=== PATIENT | male | born 1945 | race Caucasian/White ===

== ENCOUNTER → 2017-08-18 | Outpatient (CLI) | payer MEDICARE, BC ==
--- NOTE | 2017-08-18 12:26 | RAD ---
Indication difficulty swallowing. In anticipation of an esophagram a preliminary film of the chest was obtained. No acute finding is seen. There are probable background emphysematous changes. Postoperative changes are noted. Heart and pulmonary vessels are within normal limits. The initiation of swallowing was normal. No esophageal strictures, erosions or mucosal abnormalities were identified. There was relatively poor peristalsis of the esophagus. No esophageal mass was seen mild generalized dilatation of the esophagus was seen. There is a small hiatus hernia. 9 fluoroscopic images were obtained. Fluoroscopy time associated with the examination was 1.4 minutes IMPRESSION: Somewhat poor peristalsis. Generalized dilatation of the esophagus. Small hiatus hernia. No strictured segment seen
== END | disposition home or self-care (01) ==
LOC: RAD 11:23
PROVIDERS: ATTEND Family Medicine
DX: K22.8 Other specified diseases of esophagus (principal); K44.9 Diaphragmatic hernia without obstruction or gangrene; R13.11 Dysphagia, oral phase
CPT/HCPCS: 74220

== ENCOUNTER → 2017-09-01 | Outpatient (CLI) | payer MEDICARE, BC ==
--- NOTE | 2017-09-01 12:12 | RAD ---
INDICATION: EVALUATE FOR BARIUM FROM PREVIOUS EXAMS, planning for CT COMPARISON: April 07, 2012 IMPRESSION: Single frontal view of abdomen obtained. There is a moderate amount of stool throughout the colon. There is some barium seen within the colon.
== END | disposition home or self-care (01) ==
LOC: DXRAD 11:38
DX: I71.4 Abdominal aortic aneurysm, without rupture (principal)
CPT/HCPCS: 74000

== ENCOUNTER 2019-10-07 13:18 | Inpatient (IN) | payer MEDICARE, BC ==
[2019-10-07] VITALS (11 sets, daily range): BP systolic 134–165; BP diastolic 49–83
[~2019-10-07] VITALS: Ht 182.9 cm; Wt 60.0 kg
[2019-10-07 14:39] LABS: BASO # 0.1 x10^3/uL (0.0-0.2); BASO % 0 % (0-3); EOS # 0.1 x10^3/uL (0.0-0.7); EOS % 1 % (0-3); LYMPH % 6 % (24-48); MEAN CORPUSCULAR HEMOGLOBIN 33 pg (25-35); MEAN CORPUSCULAR HGB CONC 32 g/dL (31-37); MEAN CORPUSCULAR VOLUME 105 fL (79-100); MONO # 1.5 x10^3/uL (0.0-1.1); MONO % 9 % (0-9); NEUT # 15.4 x10^3uL (1.8-7.7); NEUT % 85 % (31-73); PLATELET COUNT 236 x10^3/uL (140-400); RED BLOOD COUNT 1.46 x10^6/uL (4.30-5.70); RED CELL DISTRIBUTION WIDTH 14.7 % (11.5-14.5); WHITE BLOOD COUNT 18.1 x10^3/uL (4.0-11.0)
[2019-10-07 14:43] LABS: HEMATOCRIT 15.4 % (39.0-53.0); HEMOGLOBIN 4.9 g/dL (13.0-17.5)
[2019-10-07] MEDS ORDERED: IV 1/2 NORMAL SALINE 1,000 ML IV SCH (14:45)
[2019-10-07 14:48] LABS: ALBUMIN/GLOBULIN RATIO 1.1 (1.0-1.7); CALCIUM 8.1 mg/dL (8.5-10.1); CREATININE 1.6 mg/dL (0.7-1.3); GFR 42.6; POTASSIUM 3.1 mmol/L (3.5-5.1); TOTAL BILIRUBIN 0.4 mg/dL (0.2-1.0); TOTAL PROTEIN 5.8 g/dL (6.4-8.2)
--- NOTE | 2019-10-07 15:01 | NUR ---
Pt arrived via wheelchair from Dr. Carrillo's office for weakness and anemia. Vital Signs stable upon arrival. Family at bedside, non-skid socks applied. Peripheral IV inserted in L forearm. Bed in lowest position, call light within reach. Will continue to assess and treat per 's orders.
--- NOTE | 2019-10-07 15:04 | NUR ---
Pt had critical lab HCT-15.4, HGB-4.9, orders received. Will adher to 's orders as prescribed.
[2019-10-07] MEDS ORDERED: HYDR25TA10 PO (15:11)
[2019-10-07] MEDS ORDERED: OMEP40CA45 PO (15:11)
[2019-10-07] MEDS ORDERED: LOSA100T14 PO (15:12)
[2019-10-07] MEDS ORDERED: CYAN1TAB PO (15:12)
[2019-10-07] MEDS ORDERED: EZET10TA49 PO (15:12)
[2019-10-07] MEDS ORDERED: ATOR80TA72 PO (15:12)
[2019-10-07] MEDS ORDERED: ALPR0.254 PO (15:12)
[2019-10-07] MEDS ORDERED: POTASSIUM CHLORIDE 20 MEQ TABLET.ER. PO ONE (15:30)
[2019-10-07] MEDS ORDERED: ASCO500C PO (15:31)
[2019-10-07] MEDS ORDERED: ASPI81TA50 PO (15:31)
[2019-10-07] MEDS ORDERED: CHOL100013 PO (15:31)
[2019-10-07] MEDS ORDERED: FERR325T14 PO (15:31)
[2019-10-07] MEDS ORDERED: CALC500T54 PO (15:31)
[2019-10-07] MEDS ORDERED: MULT-505 PO (15:32)
[2019-10-07] MEDS ORDERED: OMEG1CAP38 PO (15:32)
[2019-10-07] MEDS ORDERED: ELECTROLYTE (NON-ICU) PROTOCOL MC PRN (16:00)
[2019-10-07 16:13] LABS: % BANDS 4 % (0-9); % LYMPHS 5 % (24-48); % MONOS 4 % (0-10); % SEGS 87 % (35-66); PLATELET CLUMP PRESENT
--- NOTE | 2019-10-07 16:13 | RAD ---
Exam: CT of chest, abdomen and pelvis without contrast INDICATION: GI bleed TECHNIQUE: Sequential axial images through the chest, abdomen and pelvis obtained without IV contrast. Sagittal and coronal reformatted images were reconstructed from the axial data and reviewed. Comparisons: None FINDINGS: Visualized portions of the thyroid are unremarkable. No enlarged mediastinal lymph nodes are identified. Heart size is normal. No pericardial effusion. Mild to moderate coronary artery calcifications are noted. Thoracic aorta has a normal course and caliber. Pulmonary artery is not enlarged. Airways are patent. No consolidation or pneumothorax. Evaluation lungs is mildly limited secondary to respiratory motion particularly at the lung bases. No suspicious lung nodules are identified. No pleural effusion or thickening. Evaluation of the solid abdominal organs limited secondary to noncontrast technique. Liver, spleen, pancreas, gallbladder and adrenals are unremarkable. No perinephric inflammation or hydronephrosis. Several punctate calcifications within the renal mora bilaterally which may represent either nonobstructing renal calculi or vascular calcifications. There are several hypoattenuating cystic lesions within the kidneys bilaterally which are incompletely characterized on this exam, statistically likely to represent renal cysts. No ureteral calculi are identified. Bladder is distended and appears thin-walled. Prostate is not enlarged. Large amount of stool is noted within the ascending and transverse colon. No obstruction. No free intra-abdominal air or fluid. Aortic aneurysm with aortobiiliac stent graft is noted. Aneurysm measures approximately 5.1 cm as it largest diameter. No enlarged intra-abdominal lymph nodes are identified. No suspicious osseous lesions or acute fractures. IMPRESSION: 1. Aortic aneurysm measuring up to 5.1 cm in largest diameter with aortic biiliac stent graft. 2. Large amount stool noted within the colon without obstruction identified. 3. No acute processes identified within the chest. Exposure: One or more of the following in the visualized dose reduction techniques were utilized for this examination: 1. Automated exposure control 2. Adjustment of the MA and/or KV according to patient size 3. Use of iterative of reconstructive technique Electronically signed by: Thomas Dawson MD (10/07/2019 4:10 PM) [id number]
[2019-10-07] MEDS: PANTOPRAZOLE IV 80 MG in IV NORMAL SALINE 100ML 100 ML IV SCH (16:16)
[2019-10-07] MEDS: IV NORMAL SALINE 1,000ML 1,000 ML IV SCH ×3 (16:18→23:00)
--- NOTE | 2019-10-07 16:24 | RAD ---
EXAM: Chest, single view. HISTORY: Shortness of breath. COMPARISON: None. FINDINGS: Frontal views of chest are obtained. There is hyperinflation and hyperlucency due to inspiratory effort or emphysema. There is suspected right apical pleural parenchymal scarring. There is no consolidation, pleural effusion or pneumothorax. There are median sternotomy changes. There is distended air-filled bowel within the upper abdomen. IMPRESSION: 1. No acute pulmonary finding. 2. Distended air-filled bowel within the upper abdomen. Electronically signed by: Jenn Murphy MD (10/07/2019 4:21 PM) [id number]
[2019-10-07 16:27] LABS: PLT ESTIMATE ADEQUATE (ADEQUATE)
--- NOTE | 2019-10-07 17:10 | NUR ---
Blood Transfusion started at 1655. Tubing primed with NS and then primed with blood. Transfusion started at 60/hr, patient monitored closely x 15min. No reaction noted, transfusion increased to 120/hr.
--- NOTE | 2019-10-07 19:40 | NUR ---
1st unit completed at 1939. Pt tolerated well.
[2019-10-07 23:34] LABS: HEMATOCRIT 20.9 % (39.0-53.0)
[2019-10-07 23:50] LABS: HEMOGLOBIN 6.8 g/dL (13.0-17.5)
[2019-10-07 23:52] LABS: FECAL OB PT POSITIVE (NEG)
[2019-10-07 23:53] LABS: BACTERIA,URINE 0 /HPF (0-FEW); BILIRUBIN,URINE NEG (NEG); CLARITY,URINE CLEAR; COLOR,URINE YELLOW; GLUCOSE,URINE NEG (NEG); NITRITE,URINE NEG (NEG); RBC,URINE 0 /HPF (0-2); UROBILINOGEN,URINE 0.2 mg/dL (0.2 mg/dL); WBC,URINE OCC /HPF (0-4)
--- NOTE | 2019-10-07 23:58 | NUR ---
2nd unit of Blood Blood transfusion started at 4. Tubing primed with normal saline and then primed with blood. Transfusion started at 100 ml/hr, patient monitored closely x15 minutes. No transfusion reaction noted, transfusion increased to 150. Transfusion completed at 2249. Pt tolerated well.
[2019-10-08] VITALS (10 sets, daily range): BP systolic 138–185; BP diastolic 52–82
[2019-10-08] MEDS: PANTOPRAZOLE IV 80 MG in IV NORMAL SALINE 100ML 100 ML IV SCH ×2 (01:15→12:40)
[2019-10-08] MEDS: IV NORMAL SALINE 1,000ML 1,000 ML IV SCH ×5 (03:00→19:00)
--- NOTE | 2019-10-08 03:24 | NUR ---
3rd unit of Blood Blood transfusion started at 0039. Tubing primed with normal saline and then primed with blood. Transfusion started at 100 ml/hr, patient monitored closely x15 minutes. No transfusion reaction noted, transfusion increased to 150. Transfusion completed at 0300. Pt tolerated well.
[2019-10-08 06:24] LABS: BASO % 0 % (0-3); CALCIUM 7.4 mg/dL (8.5-10.1); CREATININE 1.2 mg/dL (0.7-1.3); EOS # 0.1 x10^3/uL (0.0-0.7); EOS % 1 % (0-3); GFR 59.3; HEMATOCRIT 22.2 % (39.0-53.0); HEMOGLOBIN 7.5 g/dL (13.0-17.5); LYMPH # 0.5 x10^3/uL (1.0-4.8); LYMPH % 5 % (24-48); MEAN CORPUSCULAR HEMOGLOBIN 32 pg (25-35); MEAN CORPUSCULAR HGB CONC 34 g/dL (31-37); MEAN CORPUSCULAR VOLUME 94 fL (79-100); MONO % 10 % (0-9); NEUT # 8.5 x10^3uL (1.8-7.7); NEUT % 84 % (31-73); PLATELET COUNT 135 x10^3/uL (140-400); POTASSIUM 3.4 mmol/L (3.5-5.1); RED BLOOD COUNT 2.37 x10^6/uL (4.30-5.70); RED CELL DISTRIBUTION WIDTH 18.1 % (11.5-14.5); WHITE BLOOD COUNT 10.2 x10^3/uL (4.0-11.0)
[2019-10-08] MEDS ORDERED: POTASSIUM CHLORIDE 20 MEQ TABLET.ER. PO ONE (07:30)
[2019-10-08] MEDS ORDERED: ALPRAZolam 0.25 MG TABLET PO PRN (08:45)
[2019-10-08] MEDS ORDERED: FERROUS SULFATE 325 MG TABLET. PO SCH (09:00)
[2019-10-08 12:35] LABS: HEMATOCRIT 25.3 % (39.0-53.0); HEMOGLOBIN 8.2 g/dL (13.0-17.5)
[2019-10-08 15:57] LABS: FECAL OB PT POSITIVE (NEG)
[2019-10-08 16:36] LABS: HEMATOCRIT 22.2 % (39.0-53.0); HEMOGLOBIN 7.4 g/dL (13.0-17.5)
--- NOTE | 2019-10-08 17:18 | NUR ---
Critical lab value noted on 10/07/19, Dr. pritchard at 1500. Assessed pt as ordered
[2019-10-08] MEDS ORDERED: hydrALAZINE 10 MG TABLET PO ONE (18:15)
--- NOTE | 2019-10-08 20:39 | NUR ---
EMS arrived at 1956, transported PT to at 2015. PT in stable condition. PT belongings with the PT. PT gave some money, a check and house keys to visitor. Vital signs noted.
== END 2019-10-08 20:08 | disposition short-term general hospital (02) | DRG 379 ==
LOC: 1 SOUTH 13:18
PROVIDERS: ADMIT Family Medicine; ATTEND Family Medicine
PROC: 30233N1 Transfusion of Nonautologous Red Blood Cells into Peripheral Vein, Percutaneous Approach (ICD-10-PCS; principal; 2019-10-07)
DX: K92.2 Gastrointestinal hemorrhage, unspecified (principal); Z91.041 Radiographic dye allergy status; Z82.49 Family history of ischemic heart disease and other diseases of the circulatory system; D64.9 Anemia, unspecified; K92.1 Melena
CPT/HCPCS: 36415; 71045; 71250; 74176; 80048; 80053; 81001; 82274; 82550; 83605; 84443; 84484; 85007; 85014; 85018; 85025; 85379; 85610; 85730; 86850; 86900; 86901; 86920; C9113; P9016; J7030

== ENCOUNTER → 2019-10-19 | Outpatient (CLI) | payer MEDICARE, BC ==
[2019-10-08 19:54] VITALS: BP 177/82
[~2019-10-19] MED LIST: ALPR0.254 PO; ASCO500C PO; ASPI81TA50 PO; ATOR80TA72 PO; CALC500T54 PO; CHOL100013 PO; CYAN1TAB PO; EZET10TA49 PO; FERR325T14 PO; HYDR25TA10 PO; LOSA100T14 PO; MULT-505 PO; OMEG1CAP38 PO; OMEP40CA45 PO
[2019-10-19 12:25] LABS: BASO % 0 % (0-3); EOS # 0.1 x10^3/uL (0.0-0.7); EOS % 1 % (0-3); HEMATOCRIT 35.3 % (39.0-53.0); HEMOGLOBIN 11.3 g/dL (13.0-17.5); LYMPH # 0.3 x10^3/uL (1.0-4.8); LYMPH % 3 % (24-48); MEAN CORPUSCULAR HEMOGLOBIN 32 pg (25-35); MEAN CORPUSCULAR HGB CONC 32 g/dL (31-37); MEAN CORPUSCULAR VOLUME 99 fL (79-100); MONO # 0.9 x10^3/uL (0.0-1.1); MONO % 9 % (0-9); NEUT # 8.5 x10^3uL (1.8-7.7); NEUT % 86 % (31-73); PLATELET COUNT 248 x10^3/uL (140-400); RED BLOOD COUNT 3.59 x10^6/uL (4.30-5.70); RED CELL DISTRIBUTION WIDTH 20.1 % (11.5-14.5); WHITE BLOOD COUNT 9.9 x10^3/uL (4.0-11.0)
[2019-10-19 12:31] LABS: CALCIUM 8.8 mg/dL (8.5-10.1); CREATININE 1.3 mg/dL (0.7-1.3); GFR 54.1; POTASSIUM 3.9 mmol/L (3.5-5.1)
[2019-10-19 14:04] LABS: PLT ESTIMATE ADEQUATE (ADEQUATE)
[2019-10-19 14:05] LABS: BURR CELLS FEW; OVALOCYTES OCC; SCHISTOCYTES FEW
[2019-10-19 14:06] LABS: ANISOCYTOSIS PRESENT; TEAR DROP CELLS FEW
== END | disposition home or self-care (01) ==
LOC: LAB 12:13
PROVIDERS: ATTEND Family Medicine
DX: K92.2 Gastrointestinal hemorrhage, unspecified (principal)
CPT/HCPCS: 36415; 80048; 85025

== ENCOUNTER 2020-04-05 15:14 | Observation (INO) | payer MEDICARE, BC ==
[~2020-04-05] VITALS: Ht 182.9 cm; Wt 59.8 kg
--- NOTE | 2020-04-05 15:34 | EKG ---
[address] [address] Test Date: 2020-04-05 Test Time: 15:15:22 Pat Name: CAMILLA MELENDEZ Department: Room: Gender: M Environmental Compliance Inspector: : 1945 Requested By: SUZANNA DIXON Order Number: [id number] Reading MD: Nic Yip MD Measurements Intervals [place] Rate: 56 P: 50 VT: 166 QRS: 43 QRSD: 100 T: 61 QT: 446 QTc: 433 Interpretive Statements SINUS RHYTHM Electronically Signed On 04-06-2020 12:24:15 CDT by Nic Yip MD
[2020-04-05 15:55] LABS: BASO % 0 % (0-3); EOS # 0.1 x10^3/uL (0.0-0.7); EOS % 1 % (0-3); HEMATOCRIT 38.5 % (39.0-53.0); HEMOGLOBIN 12.8 g/dL (13.0-17.5); LYMPH # 0.6 x10^3/uL (1.0-4.8); LYMPH % 5 % (24-48); MEAN CORPUSCULAR HEMOGLOBIN 33 pg (25-35); MEAN CORPUSCULAR HGB CONC 33 g/dL (31-37); MEAN CORPUSCULAR VOLUME 100 fL (79-100); MONO # 0.6 x10^3/uL (0.0-1.1); MONO % 5 % (0-9); NEUT # 9.9 x10^3uL (1.8-7.7); NEUT % 88 % (31-73); PLATELET COUNT 217 x10^3/uL (140-400); RED BLOOD COUNT 3.84 x10^6/uL (4.30-5.70); RED CELL DISTRIBUTION WIDTH 14.1 % (11.5-14.5); WHITE BLOOD COUNT 11.2 x10^3/uL (4.0-11.0)
--- NOTE | 2020-04-05 15:57 | RAD ---
PORTABLE CHEST 1V Clinical indications: Chest pain. Sternotomy. COMPARISON: October 07, 2019. Findings: No acute lung infiltrate or pleural effusion or pulmonary edema or lung mass or pneumothorax is seen. A sternotomy is again evident. Hiatal hernia is again evident. The heart size is normal and stable. Upper mediastinum and pulmonary vasculature and both mora are stable. Impression: No acute radiographic abnormality is seen. Hiatal hernia. Electronically signed by: Yamil Painter MD (04/05/2020 3:54 PM) [id number]
[2020-04-05 16:00] LABS: CALCIUM 9.2 mg/dL (8.5-10.1); CREATININE 1.6 mg/dL (0.7-1.3); GFR 42.6; POTASSIUM 4.3 mmol/L (3.5-5.1)
[2020-04-05] MEDS ORDERED: MORPHINE SULFATE 4 MG/ML DISP.SYRIN. IV ONE (16:00)
--- NOTE | 2020-04-05 16:05 | PHYS DOC ---
Past History Past Medical History: Anxiety, GERD, Hypertension, Other (AAA) Past Surgical History: Coronary Bypass Surgery, Gastric Bypass Alcohol Use: Rarely General Adult EDM: Chief Complaint: ABDOMINAL PAIN HPI: HPI: Patient is a 74 year old male presented to the ER today for evaluation of epigastric abdominal pain that radiating to his back since last night. The pain subsided but after he ate lunch today, the pain came back. The pain radiates into his upper esophagus. Patient denies vomiting but has nausea, no cough, no fever. Patient said his stool always been dark because he was on iron supp lement. Patient had not been taking any iron supplement for the last 3 days. Any trouble breathing, no cough, no fever, . Patient has history of AAA repaired. Patient denies any bowel or bladder incontinence. Review of Systems: Review of Systems: Constitutional: Denies fever or chills Eyes: Denies change in visual acuity HENT: Denies nasal congestion or sore throat Respiratory: Denies cough or shortness of breath Cardiovascular: Denies chest pain or edema GI: Denies abdominal pain, nausea, vomiting, bloody stools or diarrhea : Denies dysuria Musculoskeletal: Denies back pain or joint pain Integument: Denies rash Neurologic: Denies headache, focal weakness or sensory changes Endocrine: Denies polyuria or polydipsia Lymphatic: Denies swollen glands Psychiatric: Denies depression or anxiety Heart Score: HEART Score for Chest Pain: HEART Score for Chest Pain Response (Comments) Value History Slighlty/Non-Suspicious 0 ECG Normal 0 Age > 65 2 Risk Factors >3 Risk Factors or Hx CAD 2 Troponin < Normal Limit 0 Total 4 Risk Factors: Risk Factors: DM, Current or recent (<one month) smoker, HTN, HLP, family history of CAD, obesity. Risk Scores: Score 0 - 3: 2.5% MACE over next 6 weeks - Discharge Home Score 4 - 6: 20.3% MACE over next 6 weeks - Admit for Clinical Observation Score 7 - 10: 72.7% MACE over next 6 weeks - Early Invasive Strategies Current Medications: Current Meds: Current Medications Medications (Trade) Dose Ordered Sig/Darlene Start Time Stop Time Status Last Admin Dose Admin Morphine Sulfate (Morphine 4mg Syringe) 4 mg 1X ONCE 04/05/20 16:00 04/05/20 16:01 UNV Allergies: Allergies: Allergies Coded Allergies Type Severity Reaction Last Updated Verified Iodinated Contrast Media Allergy Severe 10/07/19 Yes Uncoded Allergies Type Severity Reaction Last Updated Verified CONTRAST DYE Adverse Reaction Severe 10/07/19 Physical Exam: PE: Constitutional: Well developed, well nourished, no acute distress, non-toxic appearance. [] HENT: Normocephalic, atraumatic, bilateral external ears normal, oropharynx moist, no oral exudates, nose normal. [] Eyes: PERRLA, EOMI, conjunctiva normal, no discharge. [] Neck: Normal range of motion, no tenderness, supple, no stridor. [] Cardiovascular:Heart rate regular rhythm, no murmur [] Lungs & Thorax: Bilateral breath sounds clear to auscultation [] Abdomen: Bowel sounds normal, soft, no tenderness, no masses, no pulsatile masses. [] Skin: Warm, dry, no erythema, no rash. [] Back: No tenderness, no CVA tenderness. [] Extremities: No tenderness, no cyanosis, no clubbing, ROM intact, no edema. [] Neurologic: Alert and oriented X 3, normal motor function, normal sensory function, no focal deficits noted. [] Psychologic: Affect normal, judgement normal, mood normal. [] Current Patient Data: Labs: Laboratory Tests Test 04/05/20 15:15 White Blood Count 11.2 x10^3/uL (4.0-11.0) H Red Blood Count 3.84 x10^6/uL (4.30-5.70) L Hemoglobin 12.8 g/dL (13.0-17.5) L Hematocrit 38.5 % (39.0-53.0) L Mean Corpuscular Volume 100 fL (79-100) Mean Corpuscular Hemoglobin 33 pg (25-35) Mean Corpuscular Hemoglobin Concent 33 g/dL (31-37) Red Cell Distribution Width 14.1 % (11.5-14.5) Platelet Count 217 x10^3/uL (140-400) Neutrophils (%) (Auto) 88 % (31-73) H Lymphocytes (%) (Auto) 5 % (24-48) L Monocytes (%) (Auto) 5 % (0-9) Eosinophils (%) (Auto) 1 % (0-3) Basophils (%) (Auto) 0 % (0-3) Neutrophils # (Auto) 9.9 x10^3uL (1.8-7.7) H Lymphocytes # (Auto) 0.6 x10^3/uL (1.0-4.8) L Monocytes # (Auto) 0.6 x10^3/uL (0.0-1.1) Eosinophils # (Auto) 0.1 x10^3/uL (0.0-0.7) Basophils # (Auto) 0.0 x10^3/uL (0.0-0.2) Vital Signs: Vital Signs Date Time Temp Pulse Resp B/P (MAP) Pulse Ox O2 Delivery O2 Flow Rate FiO2 04/05/20 15:14 98.1 57 38 188/115 (139) 100 Room Air EKG: EKG: EKG was read at 1515, heart rate of 56 beats per minute, normal sinus rhythm, no ST segment elevation. Radiology/Procedures: Radiology/Procedures: [][address] [address] IMAGING REPORT Signed PATIENT: CAMILLA MELENDEZ ACCOUNT: [id number] : 1945 LOCATION: ER AGE: 74 SEX: M EXAM STATUS: REG ER ORD. PHYSICIAN: SUZANNA DIXON DO REASON: NONE PROCEDURE: PORTABLE CHEST 1V PORTABLE CHEST 1V Clinical indications: Chest pain. Sternotomy. COMPARISON: October 07, 2019. Findings: No acute lung infiltrate or pleural effusion or pulmonary edema or lung mass or pneumothorax is seen. A sternotomy is again evident. Hiatal hernia is again evident. The heart size is normal and stable. Upper mediastinum and pulmonary vasculature and both mora are stable. Impression: No acute radiographic abnormality is seen. Hiatal hernia. Electronically signed by: Bentley Painter MD (04/05/2020 3:54 PM) [id number] DICTATED AND SIGNED BY: BENTLEY PAINTER MD DATE: 04/05/20 1554 CC: SUZANNA SINGH MD; SUZANNA DIXON DO ~ [address] [address] IMAGING REPORT Signed PATIENT: CAMILLA MELENDEZ ACCOUNT: [id number] : 1945 LOCATION: ER AGE: 74 SEX: M EXAM STATUS: REG ER ORD. PHYSICIAN: SUZANNA DIXON DO REASON: abdominal pain, back pain, HTN, HX OF AAA PROCEDURE: SCAN OF ABDOMINAL AORTA Abdominal aortic ultrasound Clinical indications: History of AAA treated with endoluminal stent graft. Back pain. COMPARISON: October 07, 2019 CT study. FINDINGS: The AP and transverse dimensions of the proximal abdominal aorta are 3.1 cm and 3.0 cm respectively. AP and transverse dimensions of the mid abdominal aorta are 4.0 cm and 3.7 cm respectively. AP and transverse dimensions of the distal abdominal aorta are 4.1 cm and 3.8 cm respectively. No free fluid is seen around the abdominal aorta. The greatest caliber of the right common iliac artery is 2.6 cm and the greatest caliber of the left common iliac artery is 1.9 cm. Color flow is seen within the lumen of the abdominal aorta and the lumen of the common iliac arteries. IMPRESSION: Abdominal aortic aneurysm which has been treated with an endoluminal stent graft. The caliber of the aneurysm is smaller in comparison to the previous CT study. Electronically signed by: Bentley Painter MD (04/05/2020 6:05 PM) [id number] DICTATED AND SIGNED BY: BENTLEY PAINTER MD DATE: 04/05/201804 Course & Med Decision Making: Course & Med Decision Making Pertinent Labs and Imaging studies reviewed. (See chart for details) Patient is a 73-year-old male who presented to ER today for evaluation of epigastric pain that radiated into his esophagus and his back. Patient was found to be hypertensive, x-ray of the chest showed hiatal hernia, patient has history of AAA, status post repair. Ultrasound of aorta did not show any dissection. Patient will be admitted to hospital for further evaluation and treatment. The pain is most likely related to the hiatal hernia. Dragon Disclaimer: Dragon Disclaimer: This electronic medical record was generated, in whole or in part, using a voice recognition dictation system. Departure Departure: Impression: Primary Impression: Chest pain Additional Impressions: Abdominal pain Hypertension Disposition: ADMITTED INPATIENT Admitting Physician: Herbert Pitts Condition: STABLE Referrals: SUZANNA SINGH MD (PCP) SUZANNA DIXON DO April 05, 2020 16:04
[2020-04-05 16:12] LABS: ALBUMIN 3.9 g/dL (3.4-5.0); ALBUMIN/GLOBULIN RATIO 1.2 (1.0-1.7); MAGNESIUM 1.9 mg/dL (1.8-2.4); TOTAL BILIRUBIN 0.8 mg/dL (0.2-1.0); TOTAL PROTEIN 7.1 g/dL (6.4-8.2)
[2020-04-05] MEDS ORDERED: LIDO:MAALOX 1:1 20 ML SINGLE DOSE. PO ONE (16:15)
[2020-04-05] MEDS ORDERED: FAMOTIDINE 20 MG/2 ML VIAL IVP ONE (16:15)
[2020-04-05] MEDS ORDERED: ONDANSETRON PF 4 MG/2 ML VIAL. ONE (16:20)
[2020-04-05] MEDS ORDERED: ONDANSETRON PF 4 MG/2 ML VIAL. IVP ONE (16:30)
[2020-04-05 17:54] LABS: BILIRUBIN,URINE NEG (NEG); CLARITY,URINE CLEAR; COLOR,URINE YELLOW; GLUCOSE,URINE NEG (NEG)
[2020-04-05 17:55] LABS: BACTERIA,URINE FEW /HPF (0-FEW); NITRITE,URINE NEG (NEG); SQUAMOUS EPITHELIAL CELL,UR OCC /LPF; UROBILINOGEN,URINE 0.2 mg/dL (0.2 mg/dL); WBC,URINE OCC /HPF (0-4)
--- NOTE | 2020-04-05 18:08 | RAD ---
Abdominal aortic ultrasound Clinical indications: History of AAA treated with endoluminal stent graft. Back pain. COMPARISON: October 07, 2019 CT study. FINDINGS: The AP and transverse dimensions of the proximal abdominal aorta are 3.1 cm and 3.0 cm respectively. AP and transverse dimensions of the mid abdominal aorta are 4.0 cm and 3.7 cm respectively. AP and transverse dimensions of the distal abdominal aorta are 4.1 cm and 3.8 cm respectively. No free fluid is seen around the abdominal aorta. The greatest caliber of the right common iliac artery is 2.6 cm and the greatest caliber of the left common iliac artery is 1.9 cm. Color flow is seen within the lumen of the abdominal aorta and the lumen of the common iliac arteries. IMPRESSION: Abdominal aortic aneurysm which has been treated with an endoluminal stent graft. The caliber of the aneurysm is smaller in comparison to the previous CT study. Electronically signed by: Yamil Painter MD (04/05/2020 6:05 PM) [id number]
[2020-04-05] MEDS ORDERED: hydrALAZINE 20 MG/ML VIAL. IV ONE (18:45)
[2020-04-05 19:39] VITALS: BP 146/71
[2020-04-05 20:21] LABS: BASO % 0 % (0-3); EOS % 0 % (0-3); HEMOGLOBIN 13.1 g/dL (13.0-17.5); LYMPH # 0.2 x10^3/uL (1.0-4.8); LYMPH % 2 % (24-48); MEAN CORPUSCULAR HEMOGLOBIN 34 pg (25-35); MEAN CORPUSCULAR HGB CONC 34 g/dL (31-37); MEAN CORPUSCULAR VOLUME 100 fL (79-100); MONO # 0.3 x10^3/uL (0.0-1.1); MONO % 3 % (0-9); NEUT # 10.5 x10^3uL (1.8-7.7); NEUT % 95 % (31-73); PLATELET COUNT 209 x10^3/uL (140-400); RED CELL DISTRIBUTION WIDTH 13.8 % (11.5-14.5); WHITE BLOOD COUNT 11.1 x10^3/uL (4.0-11.0)
[2020-04-05 20:24] LABS: CALCIUM 9.3 mg/dL (8.5-10.1); CREATININE 1.6 mg/dL (0.7-1.3); GFR 42.6; POTASSIUM 4.6 mmol/L (3.5-5.1)
[2020-04-05] MEDS ORDERED: LOSARTAN 50 MG TABLET. ONE (21:00)
[2020-04-05] MEDS ORDERED: LOSARTAN 50 MG TABLET. PO SCH (21:15)
[2020-04-05] MEDS ORDERED: PANTOPRAZOLE 40 MG TABLET. PO SCH (21:15)
[2020-04-05] MEDS: MORPHINE SULFATE 4 MG/ML DISP.SYRIN. IV PRN (21:19)
[2020-04-05 22:09] VITALS: BP 192/69
[2020-04-05 23:06] VITALS: BP 188/70
[2020-04-06] MEDS: MORPHINE SULFATE 4 MG/ML DISP.SYRIN. IV PRN (01:05)
--- NOTE | 2020-04-06 02:03 | RAD ---
EXAM: Frontal view of the chest, AP views of the abdomen in upright and supine positions. CLINICAL INDICATION: Reason: Severe abdomen pain / Spl. Instructions: / History: COMPARISON: None. FINDINGS: The heart is not enlarged. Mediastinal and hilar contours are normal. Emphysematous changes are seen bilaterally. No focal parenchymal airspace opacity. No pleural effusion or pneumothorax. Multiple dilated loops of small bowel are noted. Large volume colonic stool content is seen. No abnormal soft tissue mass effect. No suspicious calcifications are seen. No free intraperitoneal gas. Aortobiiliac stent graft are seen. IMPRESSION: Bilateral emphysematous changes are seen. No evidence for acute cardiac pulmonary process. Dilated loops of small bowel are seen, suspicious for bowel obstruction. Ileus would also have this appearance. Large volume colonic stool content is seen. Electronically signed by: Guerrero Mccord MD (04/06/2020 2:00 AM) [facility]
[2020-04-06 02:48] VITALS: BP 195/84
[2020-04-06 05:43] VITALS: BP 158/85
--- NOTE | 2020-04-06 08:45 | HP ---
ADMIT DATE: ATTENDING PHYSICIAN: Dr. Waldron CHIEF COMPLAINT: Abdominal pain. HISTORY OF PRESENT ILLNESS: The patient is a 74-year-old gentleman admitted from the ER for observation. He had epigastric abdominal pain radiating to the back for 1 night, subsided after he had lunch. He has no nausea, cough. He says stool has been dark because he was on iron supplement. He has a history of constipation. There is a history of aneurysm repair as well as colon resection 10 years ago for bleeding, diverticular disease. PAST MEDICAL HISTORY: Significant for coronary artery disease, bypass surgery, gastric bypass, hypertension and generalized anxiety along with gastroesophageal reflux. CURRENT MEDICATIONS: Reviewed. He takes alprazolam, ascorbic acid, aspirin, calcium, Lipitor, vitamin D3, Zetia, ferrous sulfate, hydrochlorothiazide, losartan, multivitamin, omega 3 and omeprazole. ALLERGIES: He has allergies to IODINATED CONTRAST MEDIA. SOCIAL HISTORY: Nonsmoker, occasional drinker. FAMILY HISTORY: Noncontributory. REVIEW OF SYSTEMS: Significant for the localized epigastric pain. He has not had a good bowel movement. No fevers, chills, cough, congestion or palpitation. All other systems reviewed and turned to be negative. PHYSICAL EXAMINATION: GENERAL: When I saw him, this is a pleasant, alert gentleman. INITIAL VITAL SIGNS: Showed blood pressure 158/85, pulse is 95 and regular. He was afebrile, oxygen saturation 96% on room air. HEENT: Head is without trauma. Pupils are reactive. Sclerae nonicteric. Oropharynx clear. NECK: Supple, no bruits. LUNGS: Clear. CARDIOVASCULAR: Showed regular heart tones. ABDOMEN: Soft. Minimal guarding, tenderness. Some tympany. No rebound tenderness. EXTREMITIES: Showed no cyanosis or edema. NEUROLOGIC: Focally intact. PERTINENT LABORATORY STUDIES: Hemoglobin maintained at 13.1 g/dL with white count of 11,100. Chemistry panel showed stable BUN and creatinine. Creatinine is 1.6 mg/Dl. Nonfasting blood sugar 175. Cardiac enzymes negative for myocardial necrosis. ASSESSMENT: A 74-year-old gentleman with: 1. Epigastric pain, most likely constipation. 2. History of coronary artery disease. 3. Abdominal aortic aneurysm repair. 4. Hypertension. 5. Strong anxiety component. PLAN: 1. Observation admission. 2. Obstructive series. 3. Continue home meds. LITO WALDRON MD DR: VIC/esvin JOB#: [id number] / [id number] SUZANNA Reed MD
[2020-04-06] MEDS ORDERED: ALPRAZolam 0.25 MG TABLET PO SCH (09:00)
--- NOTE | 2020-04-06 09:12 | DS ---
DATE OF DISCHARGE: 04/06/2020 FINAL DISCHARGE DIAGNOSES: 1. Abdominal pain, resolved. 2. Constipation. 3. History of colon resection in the past with primary anastomosis. 4. Coronary artery disease. 5. Hypertension. 6. Generalized anxiety. 7. Gastroesophageal reflux disease. HISTORY OF PRESENT ILLNESS: This is a very pleasant, alert 74-year-old gentleman admitted through the ED with a 1-day history of abdominal pain radiating to the back. He has a previous abdominal surgery. There is some nausea, but no vomiting. He has had constipation problems in the past. PHYSICAL EXAMINATION: Please see the dictated note. PERTINENT LABORATORY AND X-RAY STUDIES: His creatinine is 1.6 mg/dL, BUN 24. Electrolytes within normal range. Hemoglobin maintained at 13.1 g/dL with white cell count 11,000. IMAGING STUDIES: Chest x-ray was entirely clear. He has a large hiatal hernia, obstructive series showed a large amount of stool in the colon, dilated loops of bowels suspicious for bowel obstruction. Clinically, he did not have bowel obstruction. Emphysematous changes seen in the lung bases. COURSE IN THE HOSPITAL: The patient was admitted. He had an obstructive series. He was recommended to take magnesium citrate when I saw him the next morning. Because he drove himself in, I suggested he take it after he gets home. In addition, I added MiraLax 17 grams daily. There are no changes in his other home meds. He will follow up with Dr. Carrillo. He should continue his scheduled aspirin daily, alprazolam, ascorbic acid, Lipitor, calcium, cholecalciferol, Zetia, ferrous sulfate, hydrochlorothiazide, losartan, multivitamin, omega-3 acid, and omeprazole. The patient was then discharged from our hospital in stable condition with explicit instructions and followup care. LITO WALDRON MD DR: VIC/esvin JOB#: [id number] / [id number] SUZANNA Reed MD, II, Dr.
[2020-04-06] MEDS ORDERED: ASPIRIN ENTERIC COATED 81 MG TABLET.DR. PO SCH (16:00)
== END 2020-04-06 09:36 | disposition home or self-care (01) ==
LOC: ER 15:14 → 1 SOUTH 17:57 → INTOOBSV 17:57
PROVIDERS: ADMIT Hospitalist; ATTEND Hospitalist
DX: R10.13 Epigastric pain (principal); R07.89 Other chest pain; I25.10 Atherosclerotic heart disease of native coronary artery without angina pectoris; I71.4 Abdominal aortic aneurysm, without rupture; I10 Essential (primary) hypertension; F41.9 Anxiety disorder, unspecified; K59.00 Constipation, unspecified; K21.9 Gastro-esophageal reflux disease without esophagitis; D72.829 Elevated white blood cell count, unspecified; D64.9 Anemia, unspecified; E87.1 Hypo-osmolality and hyponatremia; E11.9 Type 2 diabetes mellitus without complications; R79.89 Other specified abnormal findings of blood chemistry; Z79.82 Long term (current) use of aspirin; Z98.84 Bariatric surgery status; Z90.49 Acquired absence of other specified parts of digestive tract; Z95.1 Presence of aortocoronary bypass graft
CPT/HCPCS: 36415; 71045; 74022; 76770; 80048; 80053; 81001; 83690; 83735; 83880; 84484; 85025; 85610; 85730; 93005; 96374; 96375; 96376; 99285; G0378; G0379; J0360; J2270; J3490

== ENCOUNTER 2022-02-18 03:12 | Emergency (ER) | payer MEDICARE, BC ==
[~2022-02-18] VITALS: Ht 182.9 cm; Wt 59.8 kg
[~2022-02-18 03:12] MED LIST changes: -OMEP40CA45 PO; +OMEP40CA7 PO
[2022-02-18] MEDS ORDERED: ONDANSETRON PF 4 MG/2 ML VIAL. IVP ONE ×2 (03:30→07:00)
--- NOTE | 2022-02-18 03:34 | PHYS DOC ---
Past History Past Medical History: Anxiety, GERD, Hypertension, Other Past Surgical History: Coronary Bypass Surgery, Gastric Bypass Alcohol Use: Rarely General Adult EDM: Chief Complaint: ABDOMINAL PAIN HPI: HPI: 76-year-old male presents via EMS with abdominal pain and distention. The patient states that he has been having abdominal pain since about 5 PM last night. He describes it as a fullness and cramping of moderate to severe intensity. He states that it was difficult to even get his pants are because he felt distended. He did have a bowel movement around 8 PM. He has been passing gas. He has a history of CABG and a bowel resection. He denies fever or chills. Review of Systems: Review of Systems: Constitutional: Denies fever or chills Eyes: Denies change in visual acuity HENT: Denies nasal congestion or sore throat Respiratory: Denies cough or shortness of breath Cardiovascular: Denies chest pain or edema GI: Generalized abdominal pain, nausea. Denies vomiting, bloody stools or diarrhea : Denies dysuria Musculoskeletal: Denies back pain or joint pain Integument: Denies rash Neurologic: Denies headache, focal weakness or sensory changes Endocrine: Denies polyuria or polydipsia Lymphatic: Denies swollen glands Psychiatric: Denies depression or anxiety Allergies: Allergies: Allergies Coded Allergies Type Severity Reaction Last Updated Verified Iodinated Contrast Media Allergy Severe 10/07/19 Yes Physical Exam: PE: Constitutional: Well developed, well nourished, no acute distress, non-toxic appearance. [] HENT: Normocephalic, atraumatic, bilateral external ears normal, oropharynx moist, no oral exudates, nose normal. [] Eyes: PERRLA, EOMI, conjunctiva normal, no discharge. [] Neck: Normal range of motion, no tenderness, supple, no stridor. [] Cardiovascular: Heart rate regular rhythm, no murmur [] Lungs & Thorax: Bilateral breath sounds clear to auscultation [] Abdomen: Bowel sounds diminished, distended, generalized tenderness. [] Skin: Warm, dry, no erythema, no rash. [] Back: No tenderness, no CVA tenderness. [] Extremities: No tenderness, no cyanosis, no clubbing, ROM intact, no edema. [] Neurologic: Alert and oriented X 3, normal motor function, normal sensory function, no focal deficits noted. [] Psychologic: Affect normal, judgement normal, mood normal. [] EKG: EKG: Sinus rhythm, rate 59, normal axis, no ST elevation or depression. [] Radiology/Procedures: Radiology/Procedures: [] Impressions: EXAM: CT Abdomen and Pelvis without IV contrast CLINICAL HISTORY: Reason: abdominal distention, contrast allergy / Spl. Instructions: / History: . COMPARISON: none TECHNIQUE: Helical CT of the abdomen and pelvis without intravenous contrast. Axial, coronal and sagittal reformatted images were generated. PQRS compliance statement - One or more of the following individualized dose reduction techniques were utilized for this study: 1. Automated exposure control 2. Adjustment of the mA and/or kV according to patient size 3. Use of iterative reconstruction technique FINDINGS: Lack of intravenous contrast limits evaluation of solid organs, vasculature, and lymph nodes. Lower chest: Lung bases are clear. Abdomen and Pelvis: No focal liver lesion. Gallbladder is normal. Spleen and adrenal glands are grossly unremarkable. Bilateral renal cysts are seen. Nonobstructing right lower pole and left lower pole renal calculi. No hydronephrosis. No hydroureter. Diffuse dilated loops of small are seen to a transition point in the left lower quadrant. Left internal hernia contains a segment of small bowel although the transition point is thought to be distal to this. No pneumoperitoneum or bowel wall gas is convincingly identified. A few small foci of gas in the anterior right hemiabdomen likely within small bowel loops. The distal small bowel is decompressed. Large volume colonic stool content is seen. Anastomosis at the rectosigmoid is seen. Aortobiiliac atherosclerotic stent. Abdominal aortic aneurysm sac measures 4.9 cm. No abdominal or pelvic lymphadenopathy. No abdominal or pelvic ascites. Bones: Sclerotic focus left iliac bone, bone island. IMPRESSION: 1. Diffuse dilation of small bowel loops to the left lower quadrant, consistent with bowel obstruction. Left inguinal hernia contains a segment of small bowel although the obstruction appears to be distal. 2. Large volume colonic stool content. 3. Abdominal aortic aneurysm post aortobiiliac stent. 4. Nonobstructing renal calculi. Bilateral renal cysts are seen. Electronically signed by: Guerrero Avendano MD (02/18/2022 4:24 AM) [facility] DICTATED AND SIGNED BY: GUERRERO AVENDANO MD DATE: 02/18/22 0416 CC: JANETH NGUYEN DO; SUZANNA SINGH MD ~ Heart Score: C/O Chest Pain: No Risk Factors: Risk Factors: DM, Current or recent (<one month) smoker, HTN, HLP, family history of CAD, obesity. Risk Scores: Score 0 - 3: 2.5% MACE over next 6 weeks - Discharge Home Score 4 - 6: 20.3% MACE over next 6 weeks - Admit for Clinical Observation Score 7 - 10: 72.7% MACE over next 6 weeks - Early Invasive Strategies Course & Med Decision Making: Course & Med Decision Making Pertinent Labs and Imaging studies reviewed. (See chart for details) Patient's labs are essentially unremarkable. His elevated creatinine is similar to previous in the chart. I have given the patient 75 mcg fentanyl for his pain. CT of the pelvis shows a large stool burden as well as small bowel obstruction. We will place an NG tube and consult surgery. I spoke with the surgeon, Dr. Smith and he has recommend the patient be transferred to [facility]. I spoke with the hospitalist, Dr. Zuluaga and he has accepted patient for transfer. He will go by ambulance. [] Dragon Disclaimer: Dragon Disclaimer: This electronic medical record was generated, in whole or in part, using a voice recognition dictation system. Departure Departure: Impression: Primary Impression: Small bowel obstruction Additional Impression: Constipation Disposition: 02 SHORT TERM HOSPITAL Condition: STABLE Referrals: SUZANNA SINGH MD (PCP) JANETH NGUYEN DO Feb 18, 2022 03:34
[2022-02-18 03:36] LABS: BASO # 0.2 x10^3/uL (0.0-0.2); BASO % 1 % (0-3); EOS # 0.1 x10^3/uL (0.0-0.7); EOS % 1 % (0-3); HEMATOCRIT 37.9 % (39.0-53.0); HEMOGLOBIN 12.7 g/dL (13.0-17.5); LYMPH # 0.9 x10^3/uL (1.0-4.8); LYMPH % 8 % (24-48); MEAN CORPUSCULAR HEMOGLOBIN 34 pg (25-35); MEAN CORPUSCULAR HGB CONC 34 g/dL (31-37); MEAN CORPUSCULAR VOLUME 102 fL (79-100); MONO # 0.6 x10^3/uL (0.0-1.1); MONO % 5 % (0-9); NEUT # 10.5 x10^3uL (1.8-7.7); NEUT % 85 % (31-73); PLATELET COUNT 232 x10^3/uL (140-400); RED BLOOD COUNT 3.72 x10^6/uL (4.30-5.70); RED CELL DISTRIBUTION WIDTH 12.5 % (11.5-14.5); WHITE BLOOD COUNT 12.3 x10^3/uL (4.0-11.0)
[2022-02-18 03:47] LABS: CALCIUM 9.4 mg/dL (8.5-10.1); CREATININE 1.6 mg/dL (0.7-1.3); GFR 42.3; POTASSIUM 4.2 mmol/L (3.5-5.1)
[2022-02-18 03:53] LABS: ALBUMIN/GLOBULIN RATIO 1.3 (1.0-1.7); TOTAL BILIRUBIN 0.7 mg/dL (0.2-1.0); TOTAL PROTEIN 7.2 g/dL (6.4-8.2)
--- NOTE | 2022-02-18 04:18 | RAD ---
EXAM: AP View of the chest DATE: 02/18/2022 3:50 AM INDICATION: Shortness of breath COMPARISON: 10/07/2019 04/05/2020 FINDINGS: The heart is not enlarged. Mediastinal and hilar contours are normal. No focal parenchymal airspace opacity. No pleural effusion or pneumothorax. IMPRESSION: 1. No radiographic evidence for acute cardiopulmonary process. Electronically signed by: Guerrero Mccord MD (02/18/2022 4:15 AM) [facility]
--- NOTE | 2022-02-18 04:27 | RAD ---
EXAM: CT Abdomen and Pelvis without IV contrast CLINICAL HISTORY: Reason: abdominal distention, contrast allergy / Spl. Instructions: / History: . COMPARISON: none TECHNIQUE: Helical CT of the abdomen and pelvis without intravenous contrast. Axial, coronal and sagi ttal reformatted images were generated. PQRS compliance statement - One or more of the following individualized dose reduction techniques wer e utilized for this study: 1. Automated exposure control 2. Adjustment of the mA and/or kV according to patient size 3. Use of iterative reconstruction technique FINDINGS: Lack of intravenous contrast limits evaluation of solid organs, vasculature, and lymph nodes. Lower chest: Lung bases are clear. Abdomen and Pelvis: No focal liver lesion. Gallbladder is normal. Spleen and adrenal glands are grossly unremarkable. Wilbert ateral renal cysts are seen. Nonobstructing right lower pole and left lower pole renal calculi. No hy dronephrosis. No hydroureter. Diffuse dilated loops of small are seen to a transition point in the left lower quadrant. Left wireless internet installer al hernia contains a segment of small bowel although the transition point is thought to be distal to this. No pneumoperitoneum or bowel wall gas is convincingly identified. A few small foci of gas in th e anterior right hemiabdomen likely within small bowel loops. The distal small bowel is decompressed. Large volume colonic stool content is seen. Anastomosis at the rectosigmoid is seen. Aortobiiliac atherosclerotic stent. Abdominal aortic aneurysm sac measures 4.9 cm. No abdominal or pelvic lymphadenopathy. No abdominal or pelvic ascites. Bones: Sclerotic focus left iliac bone, bone island. IMPRESSION: 1. Diffuse dilation of small bowel loops to the left lower quadrant, consistent with bowel obstructi on. Left inguinal hernia contains a segment of small bowel although the obstruction appears to be dis erika. 2. Large volume colonic stool content. 3. Abdominal aortic aneurysm post aortobiiliac stent. 4. Nonobstructing renal calculi. Bilateral renal cysts are seen. Electronically signed by: Guerrero Mccord MD (02/18/2022 4:24 AM) [facility]
--- NOTE | 2022-02-18 05:20 | EKG ---
[address] [address] Test Date: 2022-02-18 Test Time: 03:42:56 Pat Name: CAMILLA MELENDEZ Department: Room: Gender: M Direct Marketing Manager: : 1945 Requested By: JANETH NGUYEN Order Number: [id number] Reading MD: Nikita Barnes Measurements Intervals [place] Rate: 59 P: -35 ID: [id number] QRS: 82 QRSD: 100 T: -37 QT: 434 QTc: 434 Interpretive Statements SINUS RHYTHM LEFT ATRIAL ABNORMALITY LOW LIMB LEAD VOLTAGE ABNORMAL ECG Electronically Signed On 02-18-2022 13:13:34 CDT by Nikita Barnes
--- NOTE | 2022-02-18 06:41 | RAD ---
EXAM: Supine AP view of the abdomen DATE: 02/18/2022 5:26 AM INDICATION: Reason: post NG tube placement COMPARISON: 02/18/2022 FINDINGS/ IMPRESSION: Enteric tube tip projects over the distal esophagus. This can be advanced approximately 9 cm. Dilated loops of small bowel are seen. Evaluation for free intraperitoneal gas is limited on this supine exam. Electronically signed by: Guerrero Mccord MD (02/18/2022 6:39 AM) [facility]
[2022-02-18 07:22] VITALS: BP 155/76
== END 2022-02-18 07:45 | disposition short-term general hospital (02) ==
LOC: ER 03:12
DX: K56.609 Unspecified intestinal obstruction, unspecified as to partial versus complete obstruction (principal); K59.00 Constipation, unspecified; K21.9 Gastro-esophageal reflux disease without esophagitis; I10 Essential (primary) hypertension; Z20.822 Contact with and (suspected) exposure to COVID-19; Z95.1 Presence of aortocoronary bypass graft; Z98.84 Bariatric surgery status; Z91.041 Radiographic dye allergy status
CPT/HCPCS: 36415; 71045; 74018; 74176; 80053; 84484; 85025; 87426; 93005; 96374; 96375; 96376; 99285; J2405; J3010